=== PATIENT | female | born 1985 | race Hispanic/Latino ===

== ENCOUNTER 2024-09-16 12:42 | Emergency (ER) | payer SELFPAY ==
--- OUTSIDE RECORDS SUMMARY | 2024-09-16 12:46 | XMS REPORT | Continuity of Care Document ---
Author Name Unknown Address [address] [facility] [address] [place] [address] [facility] Address [address] [facility] [address] [place] [address] Care Team Providers Care Medication Technician Name Role Phone TROY MCKNIGHT Attending Clinician Unavailabl e Encounters Start Date/Time End Date/Time Encounter Type Admission Type Attending Clinicians Care Facility Care Department Encounter ID Source 2023-11-02 12:24:00 2023-11-02 13:54:00 Emergency TR TROY MCKNIGHT [facility] [id number] [facility] 2023-11-02 12:24:00 2023-11-02 13:54:00 emergency [facility] [id number]
[2024-09-16] MEDS ORDERED: dexAMETHasone 10 MG/ML VIAL ONE (14:18)
[2024-09-16] MEDS ORDERED: KETOROLAC 30 MG/ML INJ ONE (14:18)
[2024-09-16] MEDS ORDERED: CYCLOBENZAPRINE 10 MG TAB ONE (14:19)
[2024-09-16] MEDS ORDERED: ONDANSETRON 4 MG (ODT) TAB ONE (14:19)
--- NOTE | 2024-09-16 15:01 | EDPHYS ---
Physician Documentation [facility] Name: Hayley Abbott Age: 38 yrs Sex: Female : 1985 Arrival Date: 09/16/2024 Time: 12:42 Bed 13 Private MD: ED Physician Chris Rod HPI: 09/16 13:18 This 38 yrs old Female presents to ER via Wheelchair with complaints of Back sb4 Pain. 13:18 Patient with L5-S1 herniated disc reports with complaints of pain. States that it sb4 flares up occasionally but has improved in the past with steroid and anti-inflammatory injections. States that she has been wearing a back brace which also does help with her pain, but states that she cannot get comfortable. Reports some numbness and tingling in her right leg. Denies any bowel or bladder incontinence. 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 - Infectious Disease History:: Denies. - Social history:: Smoking status: Smoking status: Patient reports the use of cigarette tobacco products. ROS: 13:18 Constitutional: Negative for fever, chills, and weight loss, sb4 13:18 Back: Positive for pain at rest, pain with movement, radiated pain, of the lumbar area, 13:18 All other systems are negative, Exam: 13:18 Head/Face: Normocephalic, atraumatic. Eyes: Extra-ocular motions intact. Periorbital sb4 areas with no swelling, redness, or edema. ENT: Mucous membranes moist. Cardiovascular: Regular rate and rhythm with a normal S1 and S2. Respiratory: No increased work of breathing, no retractions or nasal flaring. Skin: Warm, dry with normal turgor. Normal color with no rashes, no lesions, and no evidence of cellulitis. Neuro: Awake and alert, GCS 15, oriented to person, place, time, and situation. Motor strength 5/5 in all extremities. Sensory grossly intact. 13:18 Constitutional: The patient appears alert, awake, in obvious pain, uncomfortable, Vital Signs: 13:01 BP 124 / 87; Pulse 79; Resp 19; Pulse Ox 99% ; Weight 104.33 kg; Height 5 ft. 4 in. ; iw Pain 9/10; 15:08 BP 122 / 78; Pulse 76; Resp 17; Temp 98.4; Pulse Ox 99% ; me1 15:10 Pain 3/10; me1 15:10 Pain 3/10; me1 15:10 Pain 3/10; me1 15:10 Pain 3/10; me1 13:01 Body Mass Index 39.48 (104.33 kg, 162.56 cm) iw 13:01 Pain Scale: Adult iw 15:10 Pain Scale: Adult me1 15:10 Pain Scale: Adult me1 15:10 Pain Scale: Adult me1 15:10 Pain Scale: Adult me1 MDM: 13:04 Medical Screening Exam initiated sb4 13:59 Data reviewed: vital signs, nurses notes, and as a result, I will discharge patient. sb4 Test considered but Not performed: CT: not currently available, but also not necessary. this is a flare up of a chronic condition. 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 15:02 ED course: . sb4 Administered Medications: 14:29 Drug: Ketorolac IM 30 mg IM once Route: IM; Site: right gluteus; me1 15:10 Follow up: Pain 3/10 Adult; Response: No adverse reaction; Pain is decreased me1 14:29 Drug: Dexamethasone IM 10 mg IM once Route: IM; Site: right gluteus; me1 15:10 Follow up: Pain 3/10 Adult; Response: No adverse reaction; Pain is decreased me1 14:29 Drug: Cyclobenzaprine PO 10 mg PO once Route: PO; me1 15:10 Follow up: Pain 3/10 Adult; Response: No adverse reaction; Pain is decreased me1 14:29 Drug: Ondansetron PO 4 mg PO once Route: PO; me1 15:10 Follow up: Pain 3/10 Adult; Response: No adverse reaction; Pain is decreased me1 Disposition: 09/17 07:03 Co-signature as Attending Physician, Chris Rod MD I reviewed the patient's care rn provided by the Advanced Practice Provider and agree with the diagnosis and treatment plan. Disposition Summary: 09/16/24 15:01 Discharge Ordered Notes: Location: Home sb4 Problem: an acute exacerbation sb4 Symptoms: have improved sb4 Condition: Stable sb4 Diagnosis - Other intervertebral disc disorders, lumbar region sb4 Followup: sb4 - With: Private Physician - When: 1 week - Reason: Recheck today's complaints, Re-evaluation by your physician Discharge Instructions: - Discharge Summary Sheet sb4 - Chronic Back Pain, [id number] sb4 - Herniated Disk, [id number] sb4 Forms: - Patient Portal Instructions sb4 - Leadership Thank You Letter sb4 - Work release form me1 Prescriptions: - Cyclobenzaprine 10 mg Oral Tablet - take 1 tablet ORAL route every 8 hours As needed; 30 tablet; Refills: 0, sb4 Product Selection Permitted - Diclofenac Sodium 75 mg Oral Tablet Sustained Release - take 1 tablet ORAL route 2 times per day; 30 tablet; Refills: 0, Product sb4 Selection Permitted - Medrol (Giovani) 4 mg Oral Tablets, Dose Pack - take 1 tablet ORAL route as directed - follow package instructions; 1 packet; sb4 Refills: 0, Product Selection Permitted Signatures: Bri Alexis, RN JACEY iw Chris Rod MD MD rn Brown, Sophia, PAVerna PAVerna sb4 Geovanna Dixon RN RN me1 Corrections: (The following items were deleted from the chart) 09/16 13:03 13:03 PSHx: None; [facility]
--- NOTE | 2024-09-16 15:01 | ER ---
Nurse's Notes [facility] Name: Hayley Abbott Age: 38 yrs Sex: Female : 1985 Arrival Date: 09/16/2024 Time: 12:42 Bed 13 Private MD: Diagnosis: Other intervertebral disc disorders, lumbar region Presentation: 09/16 13:01 Chief complaint: Patient states: lower back pain and numbness down right leg and arm , iw she has a herniated disc and it's gotten worse, this pain started a couple days ago. Coronavirus screen: At this time, the client does not indicate any symptoms associated with coronavirus-19. Ebola Screen: No symptoms or risks identified at this time. Initial Sepsis Screen: Does the patient meet any 2 criteria? No. Patient's initial sepsis screen is negative. Does the patient have a suspected source of infection? No. Patient's initial sepsis screen is negative. Risk Assessment: Do you want to hurt yourself or someone else? Patient reports no desire to harm self or others. Onset of symptoms was September 14, 2024. 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 - Infectious Disease History:: Denies. - Social history:: Smoking status: Smoking status: Patient reports the use of cigarette tobacco products. Screenin:45 [facility] ED Fall Risk Assessment (Adult) History of falling in the last 3 months, me1 including since admission No falls in past 3 months (0 pts) Confusion or Disorientation No (0 pts) Intoxicated or Sedated No (0 pts) Impaired Gait No (0 pts) Mobility Assist Device Used No (0 pt) Altered Elimination No (0 pt) Score/Fall Risk Level 0 - 2 = Low Risk Maintained a safe environment, Provided non-skid footwear, Hourly rounding (assess needs \T\ fall precautionary measures) done. Abuse screen: Denies threats or abuse. Nutritional screening: No deficits noted. Tuberculosis screening: No symptoms or risk factors identified. Assessment: 13:45 General: Appears uncomfortable, obese, well groomed, well developed, Behavior is calm, me1 cooperative, appropriate for age, Reports lower back pain and numbness down right leg and arm , she has a herniated disc and it's gotten worse, this pain started a couple days ago. Pain: Complains of pain in lumbar area Pain radiates to right hamstring Pain currently is 8 out of 10 on a pain scale. Quality of pain is described as sharp, shooting, Pain began suddenly, Is continuous. Neuro: Level of Consciousness is awake, alert, obeys commands, Oriented to person, place, time, situation, Appropriate for age. Cardiovascular: Patient's skin is warm and dry. Respiratory: Airway is patent Respiratory effort is even, unlabored, Respiratory pattern is regular, symmetrical. GI: No signs and/or symptoms were reported involving the gastrointestinal system. : No signs and/or symptoms were reported regarding the genitourinary system. EENT: No signs and/or symptoms were reported regarding the EENT system. Derm: Skin is intact, is healthy with good turgor, Skin is pink, warm \T\ dry. Musculoskeletal: Reports pain in lumbar area. Vital Signs: 13:01 BP 124 / 87; Pulse 79; Resp 19; Pulse Ox 99% ; Weight 104.33 kg; Height 5 ft. 4 in. ; iw Pain 9/10; 15:08 BP 122 / 78; Pulse 76; Resp 17; Temp 98.4; Pulse Ox 99% ; me1 15:10 Pain 3/10; me1 15:10 Pain 3/10; me1 15:10 Pain 3/10; me1 15:10 Pain 3/10; me1 13:01 Body Mass Index 39.48 (104.33 kg, 162.56 cm) iw 13:01 Pain Scale: Adult iw 15:10 Pain Scale: Adult me1 15:10 Pain Scale: Adult me1 15:10 Pain Scale: Adult me1 15:10 Pain Scale: Adult me1 ED Course: 12:45 Patient arrived in ED. sj2 13:01 Elvira Miller PA-C is PHCP. sb4 13:01 Chris Rod MD is Attending Physician. sb4 13:03 Triage completed. iw 13:04 Arm band placed on. iw 13:45 Patient has correct armband on for positive identification. Bed in low position. Call me1 light in reach. Side rails up X2. Provided Education on: POC. Verbalized understanding.. Client placed on continuous cardiac and pulse oximetry monitoring. NIBP monitoring applied. Pulse ox on. NIBP on. 13:45 No provider procedures requiring assistance completed. Patient did not have IV access me1 during this emergency room visit. 14:09 Geovanna Dixon, RN is Primary Nurse. me1 Administered Medications: 14:29 Drug: Ketorolac IM 30 mg IM once Route: IM; Site: right gluteus; me1 15:10 Follow up: Pain 3/10 Adult; Response: No adverse reaction; Pain is decreased me1 14:29 Drug: Dexamethasone IM 10 mg IM once Route: IM; Site: right gluteus; me1 15:10 Follow up: Pain 3/10 Adult; Response: No adverse reaction; Pain is decreased me1 14:29 Drug: Cyclobenzaprine PO 10 mg PO once Route: PO; me1 15:10 Follow up: Pain 3/10 Adult; Response: No adverse reaction; Pain is decreased me1 14:29 Drug: Ondansetron PO 4 mg PO once Route: PO; me1 15:10 Follow up: Pain 3/10 Adult; Response: No adverse reaction; Pain is decreased me1 Medication: 13:45 VIS not applicable for this client. me1 Outcome: 15:01 Discharge ordered by . yandel 15:11 Discharged to home ambulatory, with friend, me1 15:11 Condition: stable 15:11 Discharge instructions given to patient, friend, Instructed on discharge instructions, follow up and referral plans. medication usage, Demonstrated understanding of instructions, follow-up care, medications, Prescriptions given X 3, 15:11 Patient left the ED. me1 Signatures: Bri Alexis RN RN iw Elvira Miller PA-C PAVerna 4 Geovanna Dixon RN RN pr1 Morenita Cid sj2 Corrections: (The following items were deleted from the chart) 13:03 13:01 Pulse 79bpm; Resp 19bpm; Pulse Ox 99%; 104.33 kg; Height 5 ft. 4 in.; BMI: 39.4; iw Pain 9/10, Adult; iw 13:03 13:03 PSHx: None; 14:36 13:01 Chief complaint: Patient states: lower back pain and numbness down right leg and me1 arm , she has a herniated disc and it's gotten worse, this pain started a couple days ago iw 15:18 15:12 BP 122 / 78; Pulse 76bpm; Resp 17bpm; Pulse Ox 99%; Temp 98.4F; me1 me1
[2024-09-16 15:20] VITALS: BP 124/87; O2SAT 99
== END 2024-09-16 15:11 | disposition home or self-care (01) ==
LOC: ER 12:42
DX: M51.86 Other intervertebral disc disorders, lumbar region (principal)
CPT/HCPCS: 96372; 99284; J1100; Q0162